=== PATIENT | female | born 1990 | race Caucasian/White ===

== ENCOUNTER 2017-03-31 11:50 | Inpatient (IN) ==
[2017-04-03] MEDS ORDERED: D5LR 1,000 ML IV PRN ×2 (06:22→06:26)
[2017-04-03] MEDS ORDERED: MAG-AL + SIM ORAL LIQUID 30ml PO PRN (06:22)
[2017-04-03] MEDS ORDERED: CARBOPROST 250 MCG/ML INJECTION IM PRN (06:22)
[2017-04-03] MEDS ORDERED: LIDOCAINE 1% (10mg/ml) 2mL INJ PF SDV ID PRN (06:22)
[2017-04-03] MEDS ORDERED: METHYLERGONOVINE 0.2 MG/ML INJECTION IM PRN (06:22)
[2017-04-03] MEDS ORDERED: ACETAMINOPHEN 500 MG TABLET PO PRN (06:22)
[2017-04-03] MEDS ORDERED: CALCIUM CARBONATE Chewable 500mg TABLET PO PRN (06:22)
[2017-04-03] MEDS ORDERED: OXYTOCIN DRIP 30 UNIT/500 ML ML IV PRN (06:26)
[2017-04-03] MEDS: LR 1,000 ML IV PRN ×2 (06:45→10:55)
[2017-04-03 07:54] VITALS: BMI 31.0
--- NOTE | 2017-04-03 08:21 | Anesthesia Preoperative Report ---
Anesthesia Epidural/Spinal Rec - Date and Time Date: 04/03/17 Preoperative Diagnosis: , 40+2 Procedure: Labor Epidural Plan: Epidural - Vital Signs Vital Signs: Temperature 98.3 F 04/03/17 07:20 Pulse Rate 90 04/03/17 07:20 Respiratory Rate 16 04/03/17 07:20 Blood Pressure 122/79 04/03/17 07:20 Pulse Oximetry 99 04/03/17 07:20 Oxygen Delivery Method Room Air NPO since: mn /Para: P:0 Heart Rate: 120 - Medictaions & Allergies Inpatient Medications: Current Medications Acetaminophen (Tylenol) 500 - 1,000 mg PO Q4H PRN PRN Reason: Pain Al Hydroxide/Mg Hydroxide (Maalox Plus) 30 ml PO Q3H PRN PRN Reason: Indigestion Calcium Carbonate (Tums) 500 - 1,000 mg PO Q2H PRN PRN Reason: Indigestion Carboprost Tromethamine (Hemabate) 250 mcg IM O PRN PRN Reason: .Downtime Lactated Ringer's (Lactated Ringers) 1,000 mls @ 1,000 mls/hr IV .Q1H PRN PRN Reason: as directed Last Admin: 04/03/17 06:45 Dose: 1,000 mls/hr Dextrose/Lactated Ringer's (Dextrose 5%-Lactated Ringers) 1,000 mls @ 125 mls/ hr IV .Q8H PRN PRN Reason: Labor Last Admin: 04/03/17 07:46 Dose: 125 mls/hr Dextrose/Lactated Ringer's (Dextrose 5%-Lactated Ringers) 1,000 mls @ 125 mls/ hr IV .Q8H PRN PRN Reason: Labor Oxytocin (Pitocin Drip) 30 unit in 500 mls @ 2 mls/hr IV .Q24H PRN; Protocol PRN Reason: Induction/Augmentation Last Admin: 04/03/17 06:50 Dose: 2 mls/hr Lidocaine HCl (Xylocaine-Mpf 1% Vial) 0.2 mg ID O PRN PRN Reason: IV Start Methylergonovine Maleate (Methergine) 0.2 mg IM O PRN Misoprostol (Cytotec) 800 mcg IA ONCE PRN Allergies/Adverse Reactions: Allergies Allergy/AdvReac Type Severity Reaction Status Date / Time ciprofloxacin [From Cipro] Allergy Intermediate Cramping Verified 04/03/17 07:29 of the Muscles aspirin Allergy Mild Headache Verified 04/03/17 07:29 - Home Medications Home Medications: Home Medications Medication Instructions Recorded Confirmed Type Acetaminophen 325 - 650 mg PO DAILY 03/14/17 04/03/17 History Guaifenesin/Dextromethorphan 180 ml PO DAILY 03/14/17 04/03/17 History [Delsym Cough+Chest Cngst Dm Lq] Vit Calc,Iron,Folic 1 each PO DAILY 03/14/17 04/03/17 History [ Vitamins] - Medical History Cardiovascular: Reports: Other (ablation at 20yrs of age, Sees Dr Chan every 6 months ) - Pertinent Findings Lab Data: CBC and BMP 04/03/17 06:40 EKG Rhythm: Normal Sinus Rhythm - Physical Exam Respiratory Exam: lungs clear, bilateral breath sounds equal Cardiovascular Exam: regular rate and rhythm, no murmur - Airway Assessment Mallampati Score: II TMD: 3 Fingerbreadths Neck Extension: good Overall Assessment: no airway concerns - ASA ASA Score: 2 - Discussion Discussion: Discussed risks/options/alternatives of anesthesia and questions answered. Patient consents. Nursing pain assessment noted. Attestation Statement: Prior to the delivery of any anesthetic medication, I examined the patient, developed the plan, obtained the patient's consent and discussed the risk and benefits of the procedure with the patient/guardian.
[2017-04-03] MEDS ORDERED: NALOXONE 0.4 MG/ML INJECTION IVP PRN (09:23)
[2017-04-03] MEDS ORDERED: DiphenhydrAMINE 50 MG/ML INJECTION IVP PRN (09:23)
[2017-04-03] MEDS ORDERED: ONDANSETRON 4 MG/2 ML INJECTION IVP PRN (09:23)
[2017-04-03] MEDS ORDERED: ROPIVACAINE 1% 10MG/ML INJ 200 MG, SUFentanil 50 MCG in NS 100 ML EPI PRN (09:23)
[2017-04-03] MEDS ORDERED: DiphenhydrAMINE 25 MG CAPSULE PO PRN (13:30)
[2017-04-03] MEDS ORDERED: SALINE FLUSH 10ml SYRINGE IVF PRN (13:30)
[2017-04-03] MEDS ORDERED: HYDROCORTISONE 2.5% CREAM 30gm RECTALLY PRN (13:30)
[2017-04-03] MEDS ORDERED: OXYTOCIN DRIP 30 UNIT/500 ML ML IV SCH (13:30)
[2017-04-03] MEDS: IBUPROFEN 800 MG TABLET PO PRN ×2 (14:41→23:02)
--- NOTE | 2017-04-03 15:54 | Labor and Delivery Note ---
DATE 04/03/2017 Chanell is a 26-year-old 1 at 40 weeks 3 days gestational age who was started on Pitocin this morning. Her membranes were ruptured artificially returning clear fluids. She received an epidural. She progressed nicely throughout labor and only had to push for approximately 45 minutes. She had a spontaneous vaginal delivery in the KEISHA position of a viable female infant, Apgars 8/9, weight 3431 grams name "Ivana". Baby was vigorous at delivery so she was placed on mom's abdomen and the cord clamping was delayed for more than two minutes. The placenta delivered spontaneously. She had a right periurethral laceration and a first-degree perineal laceration that were both repaired. Mom and baby tolerated the delivery well. FLORY
[2017-04-03] MEDS: HYDROCODONE/APAP 5mg/325mg TABLET PO PRN ×2 (19:29→23:02)
[2017-04-04] MEDS: HYDROCODONE/APAP 5mg/325mg TABLET PO PRN ×4 (06:52→20:46)
--- NOTE | 2017-04-04 08:12 | OB/GYN Progress Note ---
OB-PP Progress Note - General PPD1 - Subjective Date: 04/04/17 Lochia: Moderate Pain: contolled Voiding: voiding Nausea or Vomiting Present: No - Objective Vital Signs: Last Vital Signs Temp 97.7 F 04/03/17 21:39 Pulse 123 H 04/03/17 21:39 Resp 16 04/03/17 21:39 BP 137/79 04/03/17 21:39 Pulse Ox 97 04/03/17 21:39 Urine Output: good General: alert and oriented Abdomen: fundus firm Extremities: non-tender Edema: none - Assessment Assessment: - Plan Plan: routine care (Plans to stay until . )
[2017-04-04] MEDS ORDERED: DEXTROMETHORPHAN 30 MG/5 ML ORAL LIQUID PO PRN (09:00)
[2017-04-04] MEDS: PRENATAL VITAMIN TABLET PO SCH (10:16)
[2017-04-04] MEDS: DOCUSATE CALCIUM 240 MG CAPSULE PO SCH (13:05)
[2017-04-04] MEDS: IBUPROFEN 800 MG TABLET PO PRN (13:06)
[2017-04-05 03:08] VITALS: RESP 16; O2SAT 96
[2017-04-05] MEDS: HYDROCODONE/APAP 5mg/325mg TABLET PO PRN ×2 (05:57→10:01)
[2017-04-05 07:09] VITALS: BP 118/71; PULSE 92; TEMP 98.1
--- NOTE | 2017-04-05 07:54 | OB/GYN Progress Note ---
OB-PP Progress Note - General PPD2 Maternal Group B Strep: Negative Maternal blood type: A+ Maternal Rubella Status: Immune - Subjective Date: 04/05/17 Lochia: Minimal Pain: contolled Voiding: voiding - Objective Vital Signs: Last Vital Signs Temp 98.1 F 04/05/17 06:00 Pulse 92 04/05/17 06:00 Resp 16 04/05/17 06:00 BP 118/71 04/05/17 06:00 Pulse Ox 96 04/05/17 06:00 Urine Output: good General: alert and oriented Abdomen: fundus firm, non-tender Extremities: non-tender - Assessment Assessment: - Plan Plan: routine care, discharge home, continue PNV
--- NOTE | 2017-04-05 07:57 | Discharge Instructions ---
Discharge Plan - Med Rec/Dispo Prescriptions: New Hydrocodone/APAP 5/325 [[place] 5/325] 1 - 2 tab PO Q4H PRN #30 tablet PRN Reason: Pain Vitamin Tab [Evan ] 1 tab PO DAILY tablet Ibuprofen [Motrin] 800 mg PO Q8H PRN #30 tablet PRN Reason: Pain Continue Acetaminophen 325 - 650 mg PO DAILY Magnesium 250 mg PO DAILY No Action Guaifenesin/Dextromethorphan [Delsym Cough+Chest Cngst Dm Lq] 180 ml PO DAILY Vit Calc,Iron,Folic [ Vitamins] 1 each PO DAILY Discharge Instructions/Outpatient Orders: Final Provider Discharge Instructions Location: Determined By Patient - Disposition 01 Discharged Home, Self-Care
[2017-04-05] MEDS: DOCUSATE CALCIUM 240 MG CAPSULE PO SCH (09:13)
[2017-04-05] MEDS: IBUPROFEN 800 MG TABLET PO PRN (10:41)
[2017-04-05] MEDS: PRENATAL VITAMIN TABLET PO SCH (14:16)
== END 2017-04-05 14:00 | disposition home or self-care (01) | DRG 775 ==
LOC: MC 04-03 06:17
PROVIDERS: ADMIT Obstetrics & Gynecology; ATTEND Obstetrics & Gynecology